=== PATIENT | male | born 1965 | race Caucasian/White ===

== ENCOUNTER 2025-04-09 11:09 | Day surgery (SDC) | payer OTHER ==
[~2025-04-09] VITALS: Ht 177.8 cm; Wt 90.4 kg
[2025-04-09] MEDS ORDERED: Dexmedetomidine HCL 200 MCG / 2 ML ONE (11:22)
[2025-04-09] MEDS ORDERED: Lidocaine HCl 2% 10 ML SDA ONE (11:24)
== END 2025-04-09 13:12 | disposition home or self-care (01) ==
LOC: ORSCSDS 11:09
PROVIDERS: Internal Medicine Gastroenterology
PROC: 0DBM8ZX Excision of Descending Colon, Via Natural or Artificial Opening Endoscopic, Diagnostic (ICD-10-PCS; principal; 2025-04-09 12:15)
PROC: 0DBP8ZX Excision of Rectum, Via Natural or Artificial Opening Endoscopic, Diagnostic (ICD-10-PCS; principal; 2025-04-09 12:15)
DX: Z12.11 Encounter for screening for malignant neoplasm of colon (principal); D12.4 Benign neoplasm of descending colon; K62.1 Rectal polyp; K57.30 Diverticulosis of large intestine without perforation or abscess without bleeding; B18.2 Chronic viral hepatitis C; F17.210 Nicotine dependence, cigarettes, uncomplicated
CPT/HCPCS: 88305; J2003; J2704; J7120